=== PATIENT | female | born 1935 | race Asian ===

== ENCOUNTER 2018-02-20 21:52 | Emergency (ER) | payer MEDICARE ==
[~2018-02-20] VITALS: Ht 152.4 cm; Wt 63.6 kg
[2018-02-20 22:02] LABS: GLUCOSE,POINT OF CARE 284 MG/DL (70-110)
[2018-02-20] MEDS ORDERED: ASPI81TA42 PO (22:02)
[2018-02-20] MEDS ORDERED: METF500T6 PO (22:02)
[2018-02-20] MEDS ORDERED: ALLO100T PO (22:02)
[2018-02-20] MEDS ORDERED: FELO5TAB31 PO (22:02)
[2018-02-20] MEDS ORDERED: MULT-1259 PO (22:02)
[2018-02-20] MEDS ORDERED: METO25 PO (22:02)
[2018-02-20] MEDS ORDERED: ONDANSETRON HCL 4 MG/2 ML VIAL IM ONE (22:45)
[2018-02-20] MEDS ORDERED: MORPHINE SULFATE 4 MG/ML SYRINGE IM ONE (22:45)
[2018-02-20] MEDS ORDERED: MORPHINE SULFATE 2 MG/ML SYRINGE IM ONE (22:45)
[2018-02-20] MEDS ORDERED: PERTUSS(ACELL),DIPH,TET VAC/PF 0.5 ML VIAL IM ONE (22:45)
[2018-02-20] MEDS ORDERED: SODIUM CHLORIDE 0.9% 250 ML IRRIG SOLUTION BOTTLE IRRIG ONE (22:45)
[2018-02-20] MEDS ORDERED: KETOROLAC TROMETHAMINE 30 MG/ML VIAL IM ONE (23:00)
[2018-02-21] MEDS ORDERED: TraMADol HCL 50 MG TABLET PO ONE (02:00)
[2018-02-21 02:02] LABS: GLUCOSE,POINT OF CARE 281 MG/DL (70-110)
[2018-02-21] MEDS ORDERED: LIDOCAINE HCL 1% 10 ML VIAL INJ ONE (03:00)
[2018-02-21] MEDS ORDERED: LIDOCAINE HCL 1% 10 ML VIAL ONE (03:00)
[2018-02-21 03:09] VITALS: BP 134/75
== END 2018-02-21 03:24 | disposition home or self-care (01) ==
LOC: EMS 21:52
DX: S42.211A Unspecified displaced fracture of surgical neck of right humerus, initial encounter for closed fracture (principal); S01.511A Laceration without foreign body of lip, initial encounter; S80.01XA Contusion of right knee, initial encounter; S50.01XA Contusion of right elbow, initial encounter; I10 Essential (primary) hypertension; E11.9 Type 2 diabetes mellitus without complications; Z90.49 Acquired absence of other specified parts of digestive tract; W01.0XXA Fall on same level from slipping, tripping and stumbling without subsequent striking against object, initial encounter; Y93.89 Activity, other specified; Y92.89 Other specified places as the place of occurrence of the external cause; Y99.8 Other external cause status
CPT/HCPCS: 12011; 73030; 73080; 73562; 82962; 90471; 90715; 96372; 99284; J1885; J2405; J3490; J2270